=== PATIENT | male | born 1970 | race Caucasian/White ===

== ENCOUNTER 2017-05-05 14:24 | Emergency (ER) | payer OTHER ==
[~2017-05-05] VITALS: Ht 180.3 cm; Wt 82.0 kg
[2017-05-05 14:28] VITALS: Ht 180.3 cm; Wt 82.0 kg
[2017-05-05] MEDS ORDERED: HYDROCODONE/APAP (5/325) TAB PO ONE (17:30)
--- NOTE | 2017-05-05 17:59 | RADRPT ---
PROCEDURE: XR Chest. CLINICAL INDICATION: Cough times 1 week TECHNIQUE: Single frontal view of the chest was obtained COMPARISON: None FINDINGS: The heart and mediastinum are within normal limits. There is minimal prominence of the lung interstitium likely minimal chronic changes. There is appear ance of a 5 mm calcified granuloma in the left upper lung lobe. There is no pleural effusion or pneumothorax. IMPRESSION: No acute disease. RPTAT: HJES .Nabor Bradshaw MD, MD Date Time Electronically viewed and signed by .Nabor Bradshaw MD, on 05/05/2017 17:59 .S/
--- NOTE | 2017-05-05 18:02 | ERD ---
ER Documentation Chief Complaint Chief Complaint HEADACHE,COUGH,GENERALIZED BODY PAIN,SORE THROAT HPI This is a 46-year-old male presents to the emergency department today complaining of cough for the past week for 2 days and sore throat for the past couple of days. States that he has taken NyQuil with no improvement in symptoms. Denies any dizziness, blurred vision, vomiting, diarrhea or abdominal pain. States he did have some body aches previously. Denies any fevers or chills. ROS All systems reviewed and are negative except as per history of present illness. Medications Home Meds Active Scripts Guaifenesin-Dextromethorphan* (Robitussin* DM) 100MG/10MG/5ML Syrup, 10 ML PO Q6H Y for COUGH for 7 Days, ML Prov:THOMAS ROBERT PA-C 05/05/17 Acetaminophen* (Tylophen*) 500 Mg Capsule, 1 CAP PO Q6H Y for PAIN AND OR ELEVATED TEMP, #30 CAP Prov:THOMAS ROBERT PA-C 05/05/17 Naproxen* (Naprosyn*) 500 Mg Tablet, 500 MG PO BID Y for PAIN AND/OR INFLAMMATION, #30 TAB Prov:THOMAS ROBERT PA-C 05/05/17 Amoxicillin* (Amoxicillin*) 500 Mg Cap, 500 MG PO TID for 10 Days, CAP Prov:THOMAS ROBERT PA-C 05/05/17 PMhx/Soc Medical and Surgical Hx: pt denies Medical Hx, pt denies Surgical Hx Physical Exam Vitals Vital Signs Date Time Temp Pulse Resp B/P Pulse Ox O2 Delivery O2 Flow Rate FiO2 05/05/17 14:28 98.1 83 18 127/82 98 Physical Exam Const: NAD, talkative Head: Atraumatic Eyes: Normal Conjunctiva. PERRLA. EOM intact. ENT: TMs normal. Nose no drainage. Throat with erythema no exudate. Tenderness right side submandibular lymph node Neck: Full range of motion..~ No meningismus. Resp: Clear to auscultation bilaterally Cardio: Regular rate and rhythm, no murmurs Abd: Soft, non tender, non distended. Normal bowel sounds Skin: No petechiae or rashes Back: No midline or flank tenderness Ext: No cyanosis, or edema Neur: Awake and alert cranial nerves II through XII intact. No gait ataxia. Psych: Normal Mood and Affect Results 24 hrs Current Medications Medications (Trade) Dose Ordered Sig/Radha Route PRN Reason Start Time Stop Time Status Last Admin Dose Admin Acetaminophen/ Hydrocodone Bitart ([place] (5/325)) 1 tab ONCE ONCE PO 05/05/17 17:30 05/05/17 17:31 DC 05/05/17 17:31 DIAGNOSTIC IMAGING REPORT Patient: LUÍS VALLES : 1970 Age: 46 Sex: M MR #: [id number] DOS: 05/05/17 0000 Ordering MD: THOMAS ROBERT PA-C Location: [facility] Room/Bed: PROCEDURE: XR Chest. CLINICAL INDICATION: Cough times 1 week TECHNIQUE: Single frontal view of the chest was obtained COMPARISON: None FINDINGS: The heart and mediastinum are within normal limits. There is minimal prominence of the lung interstitium likely minimal chronic changes. There is appearance of a 5 mm calcified granuloma in the left upper lung lobe. There is no pleural effusion or pneumothorax. IMPRESSION: No acute disease. RPTAT: HJES .Nabor Bradshaw MD, MD Date Time Electronically viewed and signed by .Nabor Bradshaw MD, MD on 05/05/2017 17:59 .S/ CC: THOMAS ROBERT PA-C Procedures/MDM This is a 46-year-old male who presents the emergency department today complaining of influenza-like symptoms with associated headache and body aches however patient was mostly concerned about his cough and sore throat. Patient is afebrile and otherwise well-appearing. His oxygen saturation 98%. Given patient's complaints of cough and sore throat for the past week I do not feel I was able to treat patient based on [facility] criteria and therefore did obtain a strep swab and chest x-ray Chest x-ray shows no acute disease. There is an appearance of a 5 mm calcified granuloma in the left upper lung lobe. Strep a antigen is positive. Symptoms at this time is consistent with strep pharyngitis and cough likely viral. Low suspicion for retropharyngeal abscess, peritonsillar abscess. Low suspicion for pneumonia, PE, abscess, pleural effusion, pneumothorax. Patient has no focal neurologic deficits and no gait ataxia and is very talkative in the exam room and I do not feel he requires a head CT scan at this time. He denies any blurred vision or dizziness. Low suspicion for acute hemorrhage, mass, abscess, meningitis. Patient Is afebrile and otherwise well- appearing. Patient was given [place] here in the emergency department. He will be given a prescription for Naprosyn, Tylenol, Robitussin and amoxicillin to treat his strep pharyngitis. At this time the patient is stable for discharge and outpatient management. Patient should follow up with their PCP in the next 1-2 days. They may return to the emergency department sooner for any persistent or worsening of symptoms. Patient understood and agreed with the plan. Departure Diagnosis: Primary Impression: Strep pharyngitis Additional Impression: Cough Condition: THOMAS Madera PA-C May 05, 2017 18:02
[2017-05-05] MEDS ORDERED: NAPR-260 PO (18:44)
[2017-05-05] MEDS ORDERED: UDROBDM PO (18:44)
[2017-05-05] MEDS ORDERED: AMOX500C2 PO (18:44)
[2017-05-05] MEDS ORDERED: ACET500C5 PO (18:44)
[2017-05-05 19:00] VITALS: BP 124/63; PULSE 80; RESP 16; TEMP 98.8
== END 2017-05-05 19:12 | disposition home or self-care (01) ==
LOC: FTE 14:24
DX: J02.0 Streptococcal pharyngitis (principal)
CPT/HCPCS: 71010; 87430; 87880